=== PATIENT | female | born 1990 | race Caucasian/White ===

== ENCOUNTER 2022-06-23 05:26 | Inpatient (IN) | payer SELFPAY ==
[~2022-06-23 05:26] MED LIST: ceFAZolin 2 GM in Sodium Chloride 0.9% 50 ML IV ONE
[2022-06-23] MEDS: Lactated Ringers 1,000 ML IV SCH ×3 (05:50→07:27)
[2022-06-23] MEDS ORDERED: Citric Acid/Sodium Citrate Solution 30 ML Cup PO ONE (06:00)
[2022-06-23] MEDS ORDERED: Metoclopramide 10 MG/2 ML SDV IVPUSH ONE (07:00)
[2022-06-23] MEDS ORDERED: Morphine PF 1 MG/ML Amp ONE (07:20)
[2022-06-23] MEDS ORDERED: Oxytocin 10 Units/1 ML SDV ONE (07:22)
[2022-06-23] MEDS ORDERED: Phenylephrine HCl In 0.9% NaCl 1 MG/10 ML Vial ONE (07:22)
[2022-06-23] MEDS ORDERED: Ketorolac 30 MG/ML SDV ONE (07:22)
[2022-06-23] MEDS ORDERED: ceFAZolin 2 GM Vial ONE (07:58)
[2022-06-23] MEDS ORDERED: Oxytocin/Lactated Ringers 10 UNIT/1,000 ML BAG IV SCH (08:00)
[2022-06-23] MEDS ORDERED: ePHEDrine 50 MG/ML SDV ONE (08:00)
[2022-06-23] MEDS ORDERED: Ondansetron 4 MG/2 ML SDV ONE (08:24)
[2022-06-23] MEDS ORDERED: Dexamethasone 4 MG/ML SDV ONE (08:24)
[2022-06-23] MEDS ORDERED: Dextrose 5%-Lactated Ringers 1,000 ML IV SCH (09:35)
[2022-06-23] MEDS ORDERED: Acetaminophen/oxyCODONE 325-5 MG Tab PO PRN (09:35)
[2022-06-23] MEDS ORDERED: ePHEDrine 50 MG/ML SDV IVPUSH PRN (09:35)
[2022-06-23] MEDS: diphenhydrAMINE 50 MG/ML SDV IVPUSH PRN ×2 (11:01→21:48)
[2022-06-23] MEDS: Ketorolac 30 MG/ML SDV IVPUSH SCH ×2 (14:46→21:46)
[2022-06-23] MEDS: Acetaminophen/oxyCODONE 325-5 MG Tab PO PRN (18:08)
[2022-06-24] MEDS: Ketorolac 30 MG/ML SDV IVPUSH SCH (03:42)
[2022-06-24] MEDS: diphenhydrAMINE 50 MG/ML SDV IVPUSH PRN ×2 (03:44→10:07)
[2022-06-24] MEDS: Acetaminophen/oxyCODONE 325-5 MG Tab PO PRN ×3 (10:07→21:47)
[2022-06-24] MEDS: Docusate Sodium 100 MG Cap PO PRN ×2 (10:11→21:47)
[2022-06-24] MEDS: Ibuprofen 600 MG Tab PO PRN (12:40)
[2022-06-24] MEDS ORDERED: diphenhydrAMINE 25 MG Cap PO PRN (16:04)
[2022-06-25] MEDS: Ibuprofen 600 MG Tab PO PRN ×2 (01:03→10:18)
[2022-06-25] MEDS: Docusate Sodium 100 MG Cap PO PRN (10:18)
[2022-06-25] MEDS: Acetaminophen/oxyCODONE 325-5 MG Tab PO PRN (10:19)
== END 2022-06-25 10:45 | disposition home or self-care (01) | DRG 788 ==
LOC: JD.OB 05:26
PROVIDERS: ADMIT Obstetrics & Gynecology; ATTEND Obstetrics & Gynecology
PROC: 10D00Z1 Extraction of Products of Conception, Low, Open Approach (ICD-10-PCS; principal; 2022-06-23)
DX: O34.211 Maternal care for low transverse scar from previous cesarean delivery (principal); Z3A.39 39 weeks gestation of pregnancy; Z37.0 Single live birth
CPT/HCPCS: 36415; 59025; 85025; 85027; 86592; 86850; 86900; 86901; A9270-GY; J0690; J1100; J1200; J1885; J2274; J2405; J2590; J2765; J3490; J7120